=== PATIENT | male | born 1955 | race Caucasian/White ===

== ENCOUNTER 2018-09-10 11:14 | Emergency (ER) | payer OTHER ==
[~2018-09-10] VITALS: Ht 170.2 cm; Wt 75.3 kg
[2018-09-10] MEDS ORDERED: FORTAMET1000 MG PO (12:41)
[2018-09-10] MEDS ORDERED: VASOTEC5 MG PO (12:41)
== END 2018-09-11 00:31 | disposition home or self-care (01) ==
LOC: ER 11:14
DX: R41.0 Disorientation, unspecified (principal); R53.1 Weakness; J11.1 Influenza due to unidentified influenza virus with other respiratory manifestations